=== PATIENT | male | born 1945 | race Caucasian/White ===

== ENCOUNTER 2021-04-27 10:15 | Emergency (ER) | payer OTHER ==
[~2021-04-27 10:15] MED LIST: 3IN1 COMMODE; ALLOPURINOL 30300 MG PO; ATORVASTATIN CA80 MG PO; COZAAR100 MG PO; HCTZ25 MG PO; ONDANSETRON HCL4 MG PO; TOPROL XL 50 MG50 MG PO; ZOVIRAX200 MG PO
[2021-04-27 12:16] LABS: BASOPHIL 0.6 % (0-2); EOSINOPHIL 0.9 % (0-7); HCT 38.5 % (42.0-52.0); HGB 13.5 g/dl (13.2-18.0); LYMPHOCYTE 25.3 % (15-48); MCH 34.7 pg (25.0-31.0); MCHC 35.1 g/dL (32.0-36.0); MONOCYTE 11.3 % (0-12); MPV 10.3 fL (6.0-9.5); NEUTROPHIL 61.5 % (41-80); NRBC 0; PLT 178 K/uL (150-400); RBC 3.89 M/uL (4.70-6.00); RDW 12.6 % (11.5-14.0); WBC 6.9 K/uL (4.0-10.5)
[2021-04-27 12:38] LABS: ALBUMIN 4.1 g/dL (3.4-5.0); BILIRUBIN - TOTAL 0.8 mg/dL (0.2-1.0); BUN/CREAT RATIO (CALC) 16.7 RATIO; CREATININE 1.14 mg/dL (0.67-1.17); GLOBULIN (CALCULATION) 3.4 g/dL; POTASSIUM 4.6 mmol/L (3.5-5.1); TOTAL PROTEIN 7.5 g/dL (6.4-8.2)
== END 2021-04-27 13:55 | disposition home or self-care (01) ==
LOC: FER 10:15
PROVIDERS: Internal Medicine
DX: F07.81 Postconcussional syndrome (principal); I10 Essential (primary) hypertension; E78.5 Hyperlipidemia, unspecified; Z79.899 Other long term (current) drug therapy
CPT/HCPCS: 36415; 70450; 80053; 85025